=== PATIENT | male | born 2000 | race Two or more races ===

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

== ENCOUNTER 2023-05-10 19:59 | Emergency (ER) | payer OTHER, SELFPAY ==
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
[2023-05-10 20:02] VITALS: BP 142/55; PULSE 117; PULSE 123; RESP 22; RESP 29; TEMP 36.6; O2SAT 96; O2SAT 97; BMI 22.8
[2023-05-10 20:12] VITALS: BP 137/59; PULSE 115; RESP 24; O2SAT 97
[2023-05-10 20:17] VITALS: BP 139/49; PULSE 105; RESP 20; O2SAT 97
[2023-05-10 20:22] VITALS: BP 135/59; PULSE 103; RESP 16; O2SAT 96
[2023-05-10 20:27] VITALS: BP 131/63; PULSE 106; RESP 16; O2SAT 96
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
--- NOTE | 2023-05-10 20:49 | MHC.EDTECH ---
Late Entry,@ 2001 Patient was placed on the quality assurance monitor and vitals were taken,patient was fully undressed and wounds were cleaned and at bedside.
[2023-05-10 20:58] VITALS: BP 121/69; PULSE 98; RESP 18; TEMP 36.7; O2SAT 98
--- NOTE | 2023-05-10 20:58 | MHC.EDTECH ---
Vitals were taken and patient's wounds were cleaned and a telfa dressing was applied to wounds per Doctors request. Patient ambulated to bathroom without any difficulties,patient is waiting for discharge papers at this time.
[2023-05-10] MEDS: Lidocaine HCl 1%/Epi 1:100,000 10 ML VIAL INFILTRATI (21:09)
[2023-05-10] MEDS: Lidocaine HCl 2 % 20 ML VIAL 30 ML INFILTRATI (21:09)
== END 2023-05-10 21:10 | disposition home or self-care (01) ==
PROVIDERS: Emergency Provider Emergency Medicine
DX: S21.212A Laceration without foreign body of left back wall of thorax without penetration into thoracic cavity, initial encounter (principal); X99.1XXA Assault by knife, initial encounter; Y93.K1 Activity, walking an animal; Y92.410 Unspecified street and highway as the place of occurrence of the external cause; Y99.9 Unspecified external cause status
CPT/HCPCS: 12004; 71045; 99283; 99284

== ENCOUNTER 2023-06-16 18:05 | Emergency (ER) | payer OTHER, SELFPAY ==
[2023-06-16 18:47] VITALS: BP 120/46; PULSE 97; RESP 15; TEMP 37; O2SAT 96; BMI 28.5
--- NOTE | 2023-06-16 18:50 | ED.UPPEXIN ---
HPI - Extremity Injury (Upper) General Chief Complaint: Extremity Problem Stated Complaint: left swollen arm Related Data Previous Rx's Medication Instructions Recorded doxycycline monohydrate 100 mg 100 mg PO BID 7 days #14 caps 12/01/21 capsule ibuprofen 600 mg tablet 600 mg PO TID PRN pain #20 tabs 05/10/23 tramadol 50 mg tablet 50 mg PO BID PRN pain #4 tabs 05/10/23 Allergies Allergy/AdvReac Type Severity Reaction Status Date / Time amoxicillin [AMOXICILLIN] Allergy Intermediate HIVES Verified 06/17/23 10:30 [facility] Past Medical History Medical History No known health problems Social History Social History Advance Directives: No Advance Directives Information Provided: No Physical Exam Vital Signs: Vital Signs: Last Vital Signs Temp 98.6 F 06/16/23 18:47 Pulse 97 06/16/23 18:47 Resp 15 06/16/23 18:47 BP 120/46 L 06/16/23 18:47 Pulse Ox 96 06/16/23 18:47 O2 Del Method Room Air 06/16/23 18:47 BMI result Body Mass Index 28.5 Course Course Course Narrative: RME: 22yo M w/no sig PMHx c/o L 4th digit pain and swelling w/erythema streaking up to axilla since yesterday. denies known injury, insect bite, fever, chills +L 4th MCP swelling/erythema w/lymphangitis extending to axilla. No appreciable bite wound, fluctuance or induration Labs, lactic, blood cultures ordered Full HPI, ROS and PE to be performed by primary ED provider. Discharge Plan Discharge Clinical Impression: Cellulitis Patient Disposition: Left W/O Completing Treatment Prescriptions: No Action doxycycline monohydrate 100 mg capsule 100 mg PO BID 7 Days Qty: 14 0RF ibuprofen 600 mg tablet 600 mg PO TID PRN (Reason: pain) Qty: 20 0RF tramadol 50 mg tablet 50 mg PO BID PRN (Reason: pain) Qty: 4 0RF Discharge Date/Time: 06/16/23 20:30
--- NOTE | 2023-06-16 18:56 | PC.NURSE ---
PT LEFT WITHOUT COMPLETING TX. AGNES (ZACK) AWARE.
== END 2023-06-16 20:30 | disposition left against medical advice (07) ==
LOC: HO.ED 20:12
PROVIDERS: Emergency Provider Emergency Medicine
DX: L03.012 Cellulitis of left finger (principal); M79.645 Pain in left finger(s)
CPT/HCPCS: 99281

== ENCOUNTER 2023-06-17 10:23 | Emergency (ER) | payer OTHER, SELFPAY ==
[2023-06-17 10:30] VITALS: BP 115/64; PULSE 65; RESP 19; TEMP 36.6; O2SAT 98; BMI 27.5
== END 2023-06-17 11:20 | disposition left against medical advice (07) ==
PROVIDERS: Emergency Provider Emergency Medicine
DX: M79.89 Other specified soft tissue disorders (principal); M79.642 Pain in left hand
CPT/HCPCS: 99283

== ENCOUNTER 2023-06-19 13:37 | Emergency (ER) | payer OTHER, SELFPAY ==
--- NOTE | ~2023-06-19 | XR_ITS ---
EXAMINATION: XR FINGER, LEFT CLINICAL INFORMATION: Pain fourth digit with swelling. COMPARISON: None available. TECHNIQUE: 3 views of the left fourth digit.. FINDINGS: There is no visible acute fracture, dislocation or bony erosive changes. No periosteal elevation. Minimal dorsal distal fourth digit soft tissue swelling.. Alignment is anatomic. Joint spaces are maintained. XR/XR finger LT min 2V IMPRESSION: Minimal dorsal fourth digit soft tissue swelling. No visible acute fracture or dislocation seen
--- NOTE | 2023-06-19 13:40 | ED.GENADULT ---
HPI - General Adult General Chief complaint: Extremity Injury, Upper Stated complaint: Swollen finger L hand Time Seen by Provider: 06/19/23 15:08 Source: patient, RN notes reviewed and old records reviewed Mode of arrival: ambulatory History of Present Illness HPI narrative: 22-year-old male with no significant past medical history presenting to the ED complaining of left ring finger pain and swelling x3 days. Patient presented to our ED on 06/16 for similar symptoms however left without completing treatment. Reports increasing pain to distal digit. Denies fever/chills, known injury/trauma, insect bite Onset (ago): day(s) Related Data Previous Rx's Medication Instructions Recorded doxycycline monohydrate 100 mg 100 mg PO BID 7 days #14 caps 12/01/21 capsule ibuprofen 600 mg tablet 600 mg PO TID PRN pain #20 tabs 05/10/23 tramadol 50 mg tablet 50 mg PO BID PRN pain #4 tabs 05/10/23 doxycycline hyclate 100 mg tablet 100 mg PO BID 7 days #14 tabs 06/19/23 Allergies Allergy/AdvReac Type Severity Reaction Status Date / Time amoxicillin [AMOXICILLIN] Allergy Intermediate HIVES Verified 06/17/23 10:30 Review of Systems Review of Systems: Constitutional: No Fever, No Chills ENT/Mouth: No Ear Pain, No Nasal Congestion, No sore throat, No Rhinorrhea, No Swallowing Difficulty Cardiovascular: No Chest Pain, No SOB Respiratory: No Cough Musculoskeletal: + joint pain, No Myalgias, + Joint Swelling Skin: No Skin Lesions, No rash Neuro: No Weakness Yes all other systems are reviewed and are negative Constitutional: Constitutional: Reports as per [facility] Past Medical History Attestation statement: The following information was validated with the patient. Source: old records reviewed Medical History No known health problems Physical Exam ED Vital Signs: Vital Signs - 24 hr 06/19/23 13:41 Temperature 97.8 F Pulse Rate 70 Respiratory Rate 16 Blood Pressure 123/54 L Pulse Oximetry 98 Oxygen Delivery Method Room Air BMI result Body Mass Index 27.8 Const General: cooperative, healthy appearing and no acute distress Orientation/consciousness: patient oriented x3 Limitations: no limitations HENMT Head: Yes normal to inspection and Yes atraumatic Ears: hearing grossly normal bilaterally General nose exam: Normal external nose present Face and sinus: Yes normal facial exam Eyes General: appearance normal, both eyes and all related structures EOM: EOMs intact bilaterally Neck Neck: Yes normal visual inspection and Yes no meningeal signs Resp Effort & Inspection: normal respiratory effort and no respiratory distress Cardio Rate: regular rate Skin Rashes: no rashes Neuro General: patient oriented x3, tone normal and no meningeal signs Cranial nerves: Yes CN's II-XII intact bilaterally Gait exam (Neuro): Normal gait present Extrem Other: Left 4th digit with erythema and swelling greatest to proximal lateral aspect and small paronychia noted to distal portion. No fluctuance/induration. Mildly tender to palpation. Full range of motion intact with some discomfort. Neurovascular intact. Course Course Course Narrative: This is a rapid medical exam: Additional HPI, ROS, PE not included below will be deferred to primary provider. Patient is a 22-year-old right hand dominant male presenting to the emergency department with complaint of left distal forearm pain for 3 days, which radiates down to left 4th finger. Also reports swelling to left 4th finger. Slightly decreased ROM due to swelling. No erythema or ecchymosis. Denies numbness/tingling. Denies injury/trauma. Plan: x-ray Procedures Abscess I/D Site: hand Side (if applicable): left Technique: incised with blade Packing used?: none Medical Decision Making Medical Decision Making MDM Narrative: 22-year-old male with no significant past medical history presenting to the ED complaining of left ring finger pain and swelling x3 days. On exam vital signs stable, NAD, nontoxic appearing, physical exam as noted above. Concern for possible insect bite with cellulitis as well as small paronychia. No streaking/lymphangitis. Low suspicion for septic joint/arthritis or tenosynovitis. Plan: P.o. antibiotics, I & D paronychia Please refer to course for remaining clinical decision making, interpretation of labs/imaging results, and discussions with consultants and/or family members. Differential Diagnosis Differential Diagnoses: The differential diagnosis associated with the presentation includes As above Independent Interpretation I performed an independent interpretation of an: Plain X-Ray Interpretation: XR finger LT min 2V IMPRESSION: Minimal dorsal fourth digit soft tissue swelling. No visible acute fracture or dislocation seen External Record Review External record reviewed: Inpatient record, Office record, Outpatient record, Prior outpatient labs, Prior outpatient radiology, Primary care record and Outside ED record Tests considered The following testing was considered but not selected: As above Prescription Management I considered prescription management with: Pain Medication and Antibiotic Discharge Plan Discharge Clinical Impression: Cellulitis, Acute paronychia of finger Patient Disposition: Home, Self-Care Instructions: Paronychia (ED), Cellulitis (DC) Additional Instructions: Your paronychia was drained today. Warm compresses at home Take Tylenol and ibuprofen for pain/swelling Ice Doxycycline as an antibiotic please take as prescribed If finger swelling/pain or redness persists or worsens return to the ED Prescriptions: New doxycycline hyclate 100 mg tablet 100 mg PO BID 7 Days Qty: 14 0RF No Action doxycycline monohydrate 100 mg capsule 100 mg PO BID 7 Days Qty: 14 0RF ibuprofen 600 mg tablet 600 mg PO TID PRN (Reason: pain) Qty: 20 0RF tramadol 50 mg tablet 50 mg PO BID PRN (Reason: pain) Qty: 4 0RF Referrals: Physician,None [Primary Care Provider] -
[2023-06-19 13:41] VITALS: BP 123/54; PULSE 70; RESP 16; TEMP 36.6; O2SAT 98; BMI 27.8
== END 2023-06-19 20:29 | disposition home or self-care (01) ==
PROVIDERS: Emergency Provider Emergency Medicine
DX: L03.012 Cellulitis of left finger (principal); M79.642 Pain in left hand
CPT/HCPCS: 73140; 99281; 99283

== ENCOUNTER 2024-06-11 21:01 | Emergency (ER) | payer SELFPAY ==
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
[2024-06-11 21:09] VITALS: BP 125/70; PULSE 75; RESP 20; TEMP 36.9; O2SAT 98; BMI 28.0
== END 2024-06-12 00:37 | disposition left against medical advice (07) ==
PROVIDERS: Emergency Provider Emergency Medicine
DX: M54.2 Cervicalgia (principal); R51.9 Headache, unspecified; M79.641 Pain in right hand
CPT/HCPCS: 70450; 72125; 99281

== ENCOUNTER 2024-08-16 00:15 | Emergency (ER) | payer SELFPAY ==
[2024-08-16 00:38] VITALS: BP 142/82; PULSE 83; RESP 16; TEMP 36.6; O2SAT 98; BMI 25.3
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
[2024-08-16 02:19] VITALS: BP 136/69; PULSE 74; RESP 16; TEMP 36.8; O2SAT 98
[2024-08-16 02:23] VITALS: BP 136/69; PULSE 74; RESP 16; TEMP 36.8; O2SAT 98
== END 2024-08-16 02:24 | disposition home or self-care (01) ==
PROVIDERS: Emergency Provider Internal Medicine
DX: Z04.1 Encounter for examination and observation following transport accident (principal)
CPT/HCPCS: 99282; 99283

== ENCOUNTER 2024-12-22 21:36 | Emergency (ER) | payer SELFPAY ==
--- NOTE | ~2024-12-22 | XR_ITS ---
CLINICAL HISTORY: pain, swelling s p punching a wall. 3 view left wrist Comparison: None Findings: Suboptimal positioning on lateral view. No acute fracture or dislocation at the wrist. 5th metacarpal head/neck fracture. No significant loss of joint space, osteophyte, or erosions. No radiopaque foreign body. IMPRESSION: 1. No acute findings in the wrist. 2. 5th metacarpal head/neck fracture further evaluated on hand x-rays. This document has been electronically signed by: Reva Lei MD on 12/22/2024 22:46:24
--- NOTE | ~2024-12-22 | XR_ITS ---
CLINICAL HISTORY: pain, swelling s p punching a wall. 3 view left hand Comparison: None Findings: Nondisplaced 5th metacarpal head and neck fracture. No dislocation. No significant loss of joint space or osteophytes. No erosions. No radiopaque foreign body. IMPRESSION: 1. Nondisplaced 5th metacarpal head and neck fracture with no dislocation. This document has been electronically signed by: Reva Lei MD on 12/22/2024 22:46:14
[2024-12-22 21:46] VITALS: BP 146/82; PULSE 106; RESP 16; TEMP 37.2; O2SAT 98; BMI 26.8
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
[2024-12-23] MEDS: Acetaminophen 325 MG TABLET 975 MG PO (01:46)
[2024-12-23] MEDS: Ketorolac Tromethamine 30 MG/ML VIAL IM (01:46)
[2024-12-23 01:50] VITALS: BP 149/80; PULSE 70; RESP 18; TEMP 36.7; O2SAT 97
[2024-12-23 02:15] VITALS: BP 149/80; PULSE 70; RESP 18; TEMP 36.7; O2SAT 97
== END 2024-12-23 02:33 | disposition home or self-care (01) ==
PROVIDERS: Emergency Provider Emergency Medicine
DX: S62.337A Displaced fracture of neck of fifth metacarpal bone, left hand, initial encounter for closed fracture (principal); W22.8XXA Striking against or struck by other objects, initial encounter; Y93.9 Activity, unspecified; Y92.9 Unspecified place or not applicable; Y99.9 Unspecified external cause status; M79.642 Pain in left hand
CPT/HCPCS: 73100; 73120; 96372; 99284; J1885

== ENCOUNTER → 2024-12-22 21:55 | Outpatient (BNV) | payer OTHER, SELFPAY | PROVIDERS: Visit Provider Specialist | DX: S62.347A Nondisplaced fracture of base of fifth metacarpal bone, left hand, initial encounter for closed fracture (principal) | CPT/HCPCS: 73100; 73120 ==